=== PATIENT | female | born 1985 | race Caucasian/White ===

== ENCOUNTER 2017-06-20 02:01 | Emergency (ER) | payer SELFPAY ==
[~2017-06-20] VITALS: Ht 162.6 cm; Wt 118.9 kg
[2017-06-20] MEDS ORDERED: SODIUM CHLORIDE 0.9% 1,000ML IVBOLUS ONE (03:00)
[2017-06-20] MEDS ORDERED: SULFAMETH./TRIMETHOPRIM DS 800MG/160MG TABLET PO ONE (03:00)
[2017-06-20] MEDS ORDERED: SODIUM CHLORIDE FLUSH 10ML SYR IVF ONE (03:00)
[2017-06-20] MEDS ORDERED: CEFTRIAXONE PMX 1GM/50ML 50 ML IVPB ONE (03:00)
[2017-06-20] MEDS ORDERED: CEFTRIAXONE PMX 1GM/50ML 50 ML ONE (03:04)
[2017-06-20] MEDS ORDERED: SULFAMETH./TRIMETHOPRIM DS 800MG/160MG TABLET ONE (03:04)
[2017-06-20 03:26] LABS: BLOOD UREA NITROGEN 14 mg/dL (7-18)
[2017-06-20 04:16] VITALS: BP 122/64
== END 2017-06-20 04:32 | disposition home or self-care (01) ==
LOC: ED 03:44
DX: L03.114 Cellulitis of left upper limb (principal)
CPT/HCPCS: 36415; 80048; 82040; 85025; 87040; 96365; 99284; J0696; J7030

== ENCOUNTER 2018-09-28 18:35 | Emergency (ER) | payer SELFPAY ==
[~2018-09-28] VITALS: Ht 165.1 cm; Wt 103.0 kg
[2018-09-28 18:37] VITALS: BP 127/90
[2018-09-28] MEDS ORDERED: MAALOX/HYOSCYAMINE/LIDOCAINE 45 ML BTL PO ONE (19:00)
[2018-09-28] MEDS ORDERED: MAALOX/HYOSCYAMINE/LIDOCAINE 45 ML BTL ONE (19:12)
== END 2018-09-28 20:31 | disposition home or self-care (01) ==
LOC: ED 20:21
DX: J02.9 Acute pharyngitis, unspecified (principal); B00.2 Herpesviral gingivostomatitis and pharyngotonsillitis; F17.210 Nicotine dependence, cigarettes, uncomplicated
CPT/HCPCS: 36415; 87806; 99283; 99284; G0475

== ENCOUNTER 2019-03-06 11:24 | Inpatient (IN) | payer MEDICAID, OTHER ==
[~2019-03-06] VITALS: Ht 165.1 cm; Wt 106.8 kg
--- NOTE | 2019-03-06 11:53 | NUR ---
PT BACK TO ROOM
--- NOTE | 2019-03-06 12:00 | NUR ---
PT HERE FOR SOB AND REPORTING SHE CANNOT CATHCH HER BREATH AND UNABLE TO AMBULATE. PT ALSO REPORTS LEFT FACIAL SWELLING. PT DENIES TRUAMA. PT HAS CLEAR LUNG SOUNDS AND NO COUGH. PT ABLE TO SPEAK IN FULL SENTANCES. PT CONNECTED TO MONITORS AND CALL LIGHT IN REACH. VSS
[2019-03-06] MEDS ORDERED: SODIUM CHLORIDE FLUSH 10ML SYR IVF ONE (12:30)
--- NOTE | 2019-03-06 12:53 | NUR ---
PIV PLACED IN PT.
[2019-03-06 13:03] LABS: BASOPHILS # (AUTO) 0.03 x10^3/uL (0-0.1); BASOPHILS % (AUTO) 0 % (0-1); EOSINOPHILS # (AUTO) 0.02 x10^3/uL (0-0.4); EOSINOPHILS % (AUTO) 0 % (1-7); LYMPHOCYTES # (AUTO) 1.49 x10^3/uL (1-3.4); LYMPHOCYTES % (AUTO) 13 % (22-44); MD NO; MEAN CORPUSCULAR HEMOGLOBIN 25.9 pg (27.0-34.8); MEAN CORPUSCULAR HGB CONC 32.1 g/dL (32.4-35.8); MEAN CORPUSCULAR VOLUME 80.8 fL (80-100); MEAN PLATELET VOLUME 9.1 fL (7.4-10.4); MONOCYTES # (AUTO) 0.57 x10^3/uL (0.2-0.8); MONOCYTES % (AUTO) 5 % (2-9); NEUTROPHILS # (AUTO) 9.11 x10^3/uL (1.8-6.8); NEUTROPHILS % (AUTO) 81 % (42-75); PLATELET COUNT 335 x10^3/uL (130-400); RED BLOOD COUNT 4.43 x10^6/uL (3.82-5.3); RED CELL DISTRIBUTION WIDTH 16.9 % (9.6-15.2)
[2019-03-06 13:06] LABS: ALBUMIN 3.2 g/dL (3.4-5.0); ANION GAP 7 mmol/L (5-15); CALCIUM 8.3 mg/dL (8.5-10.1); CHLORIDE 105 mmol/L (98-107)
[2019-03-06 13:12] LABS: ALANINE AMINOTRANSFERASE 83 U/L (12-78); ALKALINE PHOSPHATASE 132 U/L (45-117); BILIRUBIN,TOTAL 0.7 mg/dL (0.2-1.0); CREATININE 0.93 mg/dL (0.55-1.02); TOTAL PROTEIN 7.4 g/dL (6.4-8.2)
[2019-03-06] MEDS ORDERED: CLINDAMYCIN PMX 600MG/50ML 50 ML IV ONE (14:00)
[2019-03-06] MEDS ORDERED: OMNIPAQUE 350 MG/ML, 75ML BOTTLE ONE ×2 (14:14→15:33)
[2019-03-06] MEDS ORDERED: CLINDAMYCIN PMX 600MG/50ML 50 ML ONE (14:30)
--- NOTE | 2019-03-06 14:38 | NUR ---
IV ABX STARTED. DOES NOT WANT CULTURES AT THIS TIME.
[2019-03-06] MEDS ORDERED: CHLORHEXIDINE 15 ML UDC MM ONE (16:00)
[2019-03-06] MEDS ORDERED: MORPHINE SULFATE 4 MG/ML, 1ML ONE (16:10)
[2019-03-06] MEDS ORDERED: ONDANSETRON 2MG/ML, 2ML ONE (16:10)
--- NOTE | 2019-03-06 16:15 | NUR ---
PT MEDICATED FOR PAIN.
[2019-03-06] MEDS ORDERED: ONDANSETRON 2MG/ML, 2ML IVPush ONE (16:30)
[2019-03-06] MEDS ORDERED: MORPHINE SULFATE 4 MG/ML, 1ML IVPush PRN (16:30)
--- NOTE | 2019-03-06 17:12 | NUR ---
REPORT CALLED TO FLORECITA JONES [phone]
[2019-03-06 17:47] VITALS: BP 130/89
[2019-03-06] MEDS: NICOTINE 7 MG/24 HR PATCH.TD24 TD SCH (18:13)
[2019-03-06] MEDS: SODIUM CHLORIDE 0.9% 1,000 ML IV SCH (18:19)
[2019-03-06] MEDS ORDERED: PROMETHAZINE 25 MG/ML, 1ML IM PRN (18:30)
[2019-03-06] MEDS ORDERED: ONDANSETRON ODT 4 MG PO PRN (18:30)
[2019-03-06] MEDS ORDERED: ONDANSETRON 2MG/ML, 2ML IVPush PRN (18:30)
[2019-03-06] MEDS ORDERED: DOCUSATE 100 MG CAPSULE PO PRN (18:30)
[2019-03-06] MEDS ORDERED: hydrALAzine 20 MG/ML, 1ML IVPush PRN (18:30)
[2019-03-06] MEDS ORDERED: BISACODYL 10 MG SUPP PR PRN (18:30)
[2019-03-06] MEDS ORDERED: ACETAMINOPHEN 325 MG TABLET PO PRN (18:30)
[2019-03-06] MEDS ORDERED: morphine SULFATE 10 MG/ML, 1ML IVPush PRN (18:30)
[2019-03-06] MEDS ORDERED: POLYETHYLENE GLYCOL 17 GM PACKET PO PRN (18:30)
[2019-03-06 18:48] LABS: HCT (SEDRATE) 35.5 % (34.6-47.8)
[2019-03-06 19:11] LABS: C-REACTIVE PROTEIN, QUANT 6.5 mg/dL (0.02-0.49); FREE T4 (FREE THYROXINE) 1.4 ng/dL (0.76-1.46); THYROID STIMULATING HORMONE 5.24 mIU/L (0.358-3.740)
[2019-03-06 19:41] VITALS: BP 123/93
[2019-03-06 19:59] LABS: HEMOGLOBIN A1C 6.2 % (4.2-6.3)
[2019-03-06] MEDS: HEPARIN 5,000 UNITS/ML, 1ML SQ SCH (20:43)
[2019-03-06] MEDS: CLINDAMYCIN PMX 600MG/50ML 50 ML IV SCH (20:43)
[2019-03-07 02:06] VITALS: BP 102/75
[2019-03-07] MEDS: HYDROcodone/APAP 5/325 TABLET PO PRN ×3 (04:15→20:36)
[2019-03-07] MEDS: HEPARIN 5,000 UNITS/ML, 1ML SQ SCH ×3 (04:15→20:36)
[2019-03-07] MEDS: SODIUM CHLORIDE 0.9% 1,000 ML IV SCH (04:15)
[2019-03-07] MEDS: CLINDAMYCIN PMX 600MG/50ML 50 ML IV SCH ×3 (04:16→21:48)
[2019-03-07 05:35] LABS: CHLORIDE 105 mmol/L (98-107)
[2019-03-07 05:40] LABS: BASOPHILS # (AUTO) 0.05 x10^3/uL (0-0.1); BASOPHILS % (AUTO) 1 % (0-1); EOSINOPHILS # (AUTO) 0.09 x10^3/uL (0-0.4); EOSINOPHILS % (AUTO) 1 % (1-7); LYMPHOCYTES # (AUTO) 3.64 x10^3/uL (1-3.4); LYMPHOCYTES % (AUTO) 41 % (22-44); MD NO; MEAN CORPUSCULAR HEMOGLOBIN 27.1 pg (27.0-34.8); MEAN CORPUSCULAR HGB CONC 33.2 g/dL (32.4-35.8); MEAN CORPUSCULAR VOLUME 81.8 fL (80-100); MEAN PLATELET VOLUME 9.4 fL (7.4-10.4); MONOCYTES # (AUTO) 0.84 x10^3/uL (0.2-0.8); MONOCYTES % (AUTO) 10 % (2-9); NEUTROPHILS % (AUTO) 48 % (42-75); PLATELET COUNT 309 x10^3/uL (130-400); RED CELL DISTRIBUTION WIDTH 17.1 % (9.6-15.2)
[2019-03-07 05:42] LABS: ALANINE AMINOTRANSFERASE 80 U/L (12-78); ALBUMIN 2.5 g/dL (3.4-5.0); ALKALINE PHOSPHATASE 120 U/L (45-117); ANION GAP 6 mmol/L (5-15); BILIRUBIN,TOTAL 0.4 mg/dL (0.2-1.0); CALCIUM 8.3 mg/dL (8.5-10.1); CHOLESTEROL, TOTAL 72 mg/dL (140-239); CREATININE 0.86 mg/dL (0.55-1.02); HDL CHOL % 25 % (28-40); HDL CHOLESTEROL (DIRECT) 18 mg/dL (40-60); LDL CHOLESTEROL,CALCULATED 35 mg/dL (54-169); LDL/HDL RATIO 1.9 (0.5-3.0); TOTAL PROTEIN 6.4 g/dL (6.4-8.2); TRIGLYCERIDES 97 mg/dL (50-200); VLDL CHOLESTEROL 19 mg/dL (0-25)
[2019-03-07 07:01] VITALS: BP 103/72
[2019-03-07] MEDS ORDERED: MAGNESIUM SULFATE PMX 2GM/50ML 50 ML IV ONE (10:00)
[2019-03-07 12:25] VITALS: BP 112/68
[2019-03-07] MEDS: NICOTINE 7 MG/24 HR PATCH.TD24 TD SCH (17:54)
[2019-03-07 19:24] VITALS: BP 106/73
[2019-03-08 02:58] VITALS: BP 136/84
[2019-03-08] MEDS: HEPARIN 5,000 UNITS/ML, 1ML SQ SCH ×3 (05:00→21:19)
[2019-03-08] MEDS: CLINDAMYCIN PMX 600MG/50ML 50 ML IV SCH ×3 (05:27→21:19)
[2019-03-08 05:34] LABS: ALANINE AMINOTRANSFERASE 110 U/L (12-78); ALBUMIN 2.5 g/dL (3.4-5.0); ALKALINE PHOSPHATASE 117 U/L (45-117); ANION GAP 6 mmol/L (5-15); BILIRUBIN,TOTAL 0.5 mg/dL (0.2-1.0); CALCIUM 8.1 mg/dL (8.5-10.1); CHLORIDE 105 mmol/L (98-107); CREATININE 0.95 mg/dL (0.55-1.02); TOTAL PROTEIN 6.6 g/dL (6.4-8.2)
[2019-03-08 09:59] VITALS: BP 113/80
[2019-03-08 14:39] VITALS: BP 128/88
[2019-03-08] MEDS: NICOTINE 7 MG/24 HR PATCH.TD24 TD SCH (18:30)
[2019-03-08 19:16] VITALS: BP 135/90
[2019-03-09 02:33] VITALS: BP 138/82
[2019-03-09] MEDS: CLINDAMYCIN PMX 600MG/50ML 50 ML IV SCH ×2 (05:13→14:30)
[2019-03-09] MEDS: HEPARIN 5,000 UNITS/ML, 1ML SQ SCH ×2 (05:13→14:30)
[2019-03-09 07:24] VITALS: BP 123/85
[2019-03-09 14:59] VITALS: BP 113/85
[2019-03-09] MEDS: HYDROcodone/APAP 5/325 TABLET PO PRN (15:29)
[2019-03-09] MEDS ORDERED: IBUP-1221 PO (17:24)
[2019-03-09] MEDS ORDERED: CLIN300C8 PO (17:24)
[2019-03-09] MEDS: NICOTINE 7 MG/24 HR PATCH.TD24 TD SCH (18:30)
[2019-03-09 20:07] VITALS: BP 114/78
== END 2019-03-09 19:30 | disposition home or self-care (01) | DRG 158 ==
LOC: ED 13:53 → EDIP 16:05 → 3NE 17:36
PROVIDERS: ADMIT Internal Medicine; ATTEND Internal Medicine
DX: K04.7 Periapical abscess without sinus (principal); A69.1 Other Vincent's infections; L03.211 Cellulitis of face; F15.90 Other stimulant use, unspecified, uncomplicated; F17.210 Nicotine dependence, cigarettes, uncomplicated; K02.9 Dental caries, unspecified; K06.8 Other specified disorders of gingiva and edentulous alveolar ridge; R74.0 Nonspecific elevation of levels of transaminase and lactic acid dehydrogenase [LDH]; K80.70 Calculus of gallbladder and bile duct without cholecystitis without obstruction; Z83.3 Family history of diabetes mellitus
CPT/HCPCS: 36415; 70487; 71260; 76700; 80053; 80061; 83036; 83735; 84439; 84443; 84702; 85025; 85651; 86140; 87040; 93005; G0378; J1644; J2405; Q9967; J3475; J7030

== ENCOUNTER 2019-10-26 07:49 | Inpatient (IN) | payer MEDICAID ==
[~2019-10-26] VITALS: Ht 165.1 cm; Wt 112.6 kg
[~2019-10-26 07:49] MED LIST: CLIN300C8 PO; IBUP-1221 PO
--- NOTE | 2019-10-26 08:42 | NUR ---
LABS/RAD ORDERED, AWAITING RESULTS. PT PLACED ON MONITOR, RESTING IN [facility]. CALL LIGHT WTIHIN REACH. NO NEEDS AT THIS TIME
[2019-10-26 09:09] LABS: ALANINE AMINOTRANSFERASE 34 U/L (12-78); ALBUMIN 3.1 g/dL (3.4-5.0); ANION GAP 6 mmol/L (5-15); CALCIUM 8.7 mg/dL (8.5-10.1); CHLORIDE 107 mmol/L (98-107); CREATININE 1.04 mg/dL (0.55-1.02)
[2019-10-26 09:13] LABS: ALKALINE PHOSPHATASE 119 U/L (45-117); BILIRUBIN,TOTAL 0.7 mg/dL (0.2-1.0); TOTAL PROTEIN 7.6 g/dL (6.4-8.2)
[2019-10-26 09:17] LABS: TROPONIN I 0.274 ng/mL (0.000-0.045)
[2019-10-26] MEDS ORDERED: ASPIRIN 81 MG TABLET CHEW PO ONE (09:30)
--- NOTE | 2019-10-26 09:42 | NUR ---
UNABLE TO OBTAIN IV ACCESS AFTER MULTIPLE ATTEMPTS. SNEHA RN AT BEDSIDE FOR US IV
[2019-10-26 09:47] LABS: BASOPHILS # (AUTO) 0.04 x10^3/uL (0-0.1); BASOPHILS % (AUTO) 1 % (0-1); EOSINOPHILS # (AUTO) 0.02 x10^3/uL (0-0.4); EOSINOPHILS % (AUTO) 0 % (1-7); LYMPHOCYTES # (AUTO) 2.13 x10^3/uL (1-3.4); LYMPHOCYTES % (AUTO) 28 % (22-44); MD SCAN; MEAN CORPUSCULAR HEMOGLOBIN 24.9 pg (27.0-34.8); MEAN CORPUSCULAR HGB CONC 30.9 g/dL (32.4-35.8); MEAN CORPUSCULAR VOLUME 80.5 fL (80-100); MEAN PLATELET VOLUME 9.6 fL (7.4-10.4); MONOCYTES # (AUTO) 0.61 x10^3/uL (0.2-0.8); MONOCYTES % (AUTO) 8 % (2-9); NEUTROPHILS # (AUTO) 4.82 x10^3/uL (1.8-6.8); NEUTROPHILS % (AUTO) 63 % (42-75); PLATELET COUNT 228 x10^3/uL (130-400); RED BLOOD COUNT 5.82 x10^6/uL (3.82-5.3); RED CELL DISTRIBUTION WIDTH 18.8 % (9.6-15.2)
[2019-10-26] MEDS ORDERED: ENOXAPARIN 120MG/0.8ML SQ ONE ×2 (10:00→10:30)
--- NOTE | 2019-10-26 10:08 | NUR ---
SPOKE W/PHARMACY REGARDING LOVENOX DOSE 1MG, THEY WILL CORRECT AND SEND DOSE OF LOVENOX 120MG
[2019-10-26] MEDS ORDERED: ASPIRIN 81 MG TABLET CHEW ONE (10:17)
[2019-10-26 10:24] LABS: INTERNATIONAL NORMALIZED RATIO 1.13 (0.93-1.1); PROTHROMBIN TIME 11.8 Seconds (9.6-11.5)
--- NOTE | 2019-10-26 11:08 | NUR ---
PT MEDICATED PER MAR, PT AMBULATED TO BATHROOM WITH STEADY GAIT. NO NEEDS AT THIS TIME, CALL LIGHT WITHIN REACH. AWAITING CTA RESULTS.
[2019-10-26] MEDS ORDERED: morphine SULFATE 10 MG/ML, 1ML IVPush PRN (11:30)
[2019-10-26] MEDS ORDERED: NITROGLYCERIN 0.4 MG/SPRAY SL PRN (11:30)
[2019-10-26] MEDS ORDERED: ACETAMINOPHEN 325 MG TABLET PO PRN (11:30)
[2019-10-26] MEDS ORDERED: hydrALAzine 20 MG/ML, 1ML IVPush PRN (11:30)
[2019-10-26] MEDS ORDERED: OMNIPAQUE 350 MG/ML, 150 ML BOTTLE ONE (11:50)
[2019-10-26] MEDS ORDERED: FUROSEMIDE 40 MG/4 ML IV ONE (12:00)
--- NOTE | 2019-10-26 12:04 | NUR ---
report to ronn dorado
--- NOTE | 2019-10-26 12:05 | NUR ---
REPORT TO LILIAM JONES
[2019-10-26 12:37] VITALS: BP 155/115
[2019-10-26 14:48] LABS: AMPHETAMINE SCREEN, URINE Positive (Negative); BARBITURATE SCREEN, URINE Negative (Negative); BENZODIAZEPINE SCREEN, URINE Negative (Negative); CANNABINOID SCREEN, URINE Negative (Negative); COCAINE SCREEN, URINE Negative (Negative); METHADONE SCREEN, URINE Negative (Negative); OPIATE SCREEN, URINE Negative (Negative)
[2019-10-26 15:07] VITALS: BP 134/96
[2019-10-26] MEDS ORDERED: FLU VACC QS2019-20 36MOS UP/PF 0.5 ML IM-VACC ONE (16:00)
[2019-10-26 16:21] LABS: TROPONIN I 0.275 ng/mL (0.000-0.045)
[2019-10-26] MEDS: METOPROLOL TARTRATE 25 MG TABLET PO SCH (17:21)
[2019-10-26 19:29] VITALS: BP 126/90
[2019-10-26 20:38] LABS: TROPONIN I 0.288 ng/mL (0.000-0.045)
[2019-10-26] MEDS ORDERED: ATORVASTATIN 80 MG TABLET PO SCH (21:00)
[2019-10-27 01:46] VITALS: BP_SYST 135; BP_SYST 136; BP_DIAS 101
[2019-10-27 05:57] LABS: ANION GAP 5 mmol/L (5-15); CALCIUM 8.9 mg/dL (8.5-10.1); CHLORIDE 103 mmol/L (98-107); CHOLESTEROL, TOTAL 120 mg/dL (140-239); CREATININE 1.07 mg/dL (0.55-1.02); TRIGLYCERIDES 103 mg/dL (50-200); VLDL CHOLESTEROL 21 mg/dL (0-25)
[2019-10-27 05:59] LABS: CHOL/HDL RATIO 3.2; HDL CHOL % 31 % (28-40); HDL CHOLESTEROL (DIRECT) 37 mg/dL (40-60); LDL CHOLESTEROL,CALCULATED 62 mg/dL (54-169); LDL/HDL RATIO 1.7 (0.5-3.0)
[2019-10-27] MEDS: METOPROLOL TARTRATE 25 MG TABLET PO SCH ×2 (06:11→17:13)
[2019-10-27] MEDS: ASPIRIN 81 MG TABLET EC PO SCH (06:11)
[2019-10-27 07:05] VITALS: BP 123/89
[2019-10-27] MEDS ORDERED: FUROSEMIDE 40 MG TABLET ONE (08:20)
[2019-10-27] MEDS: SILDENAFIL 20 MG TABLET PO SCH ×2 (08:30→17:14)
[2019-10-27] MEDS ORDERED: FUROSEMIDE 40 MG/4 ML IV SCH (09:00)
[2019-10-27] MEDS ORDERED: ENOXAPARIN 40 MG/0.4 ML SQ SCH (11:30)
[2019-10-27 13:14] VITALS: BP 131/90
[2019-10-27 17:13] VITALS: BP 138/100
[2019-10-27 19:42] VITALS: BP 126/83
[2019-10-27] MEDS ORDERED: ATORVASTATIN 10 MG TABLET PO SCH (21:00)
[2019-10-28 00:26] VITALS: BP 124/84
[2019-10-28] MEDS: SILDENAFIL 20 MG TABLET PO SCH ×2 (00:31→09:08)
[2019-10-28 05:26] VITALS: BP 134/95
[2019-10-28] MEDS: METOPROLOL TARTRATE 25 MG TABLET PO SCH (05:29)
[2019-10-28] MEDS: ASPIRIN 81 MG TABLET EC PO SCH (05:29)
[2019-10-28] MEDS ORDERED: FURO-93 PO (08:55)
[2019-10-28] MEDS ORDERED: ATOR10TA9 PO (08:55)
[2019-10-28] MEDS ORDERED: ASPI81TA45 PO (08:55)
[2019-10-28] MEDS ORDERED: METO25TA35 PO (08:55)
[2019-10-28] MEDS ORDERED: SILD20TA PO (08:55)
[2019-10-28] MEDS ORDERED: FUROSEMIDE 20 MG TABLET PO SCH (09:00)
[2019-10-28 09:04] VITALS: BP 114/80
[2019-10-28 09:22] LABS: BASOPHILS # (AUTO) 0.07 x10^3/uL (0-0.1); BASOPHILS % (AUTO) 1 % (0-1); EOSINOPHILS # (AUTO) 0.07 x10^3/uL (0-0.4); EOSINOPHILS % (AUTO) 1 % (1-7); LYMPHOCYTES # (AUTO) 1.94 x10^3/uL (1-3.4); LYMPHOCYTES % (AUTO) 25 % (22-44); MD NO; MEAN CORPUSCULAR HGB CONC 31.4 g/dL (32.4-35.8); MEAN CORPUSCULAR VOLUME 79.6 fL (80-100); MEAN PLATELET VOLUME 9.7 fL (7.4-10.4); MONOCYTES # (AUTO) 0.55 x10^3/uL (0.2-0.8); MONOCYTES % (AUTO) 7 % (2-9); NEUTROPHILS # (AUTO) 5.24 x10^3/uL (1.8-6.8); NEUTROPHILS % (AUTO) 67 % (42-75); PLATELET COUNT 225 x10^3/uL (130-400); RED CELL DISTRIBUTION WIDTH 19.1 % (9.6-15.2)
[2019-10-28 09:33] LABS: ANION GAP 7 mmol/L (5-15); CALCIUM 8.9 mg/dL (8.5-10.1); CHLORIDE 100 mmol/L (98-107)
[2019-10-28 09:35] LABS: CREATININE 1.12 mg/dL (0.55-1.02)
== END 2019-10-28 12:21 | disposition home or self-care (01) | DRG 291 ==
LOC: ED 08:42 → EDIP 11:30 → 5SO 12:39
PROVIDERS: ADMIT Internal Medicine Infectious Disease; ATTEND Internal Medicine
DX: I11.0 Hypertensive heart disease with heart failure (principal); J96.90 Respiratory failure, unspecified, unspecified whether with hypoxia or hypercapnia; Z68.41 Body mass index [BMI] 40.0-44.9, adult; I50.9 Heart failure, unspecified; N63.10 Unspecified lump in the right breast, unspecified quadrant; F17.210 Nicotine dependence, cigarettes, uncomplicated; E66.9 Obesity, unspecified; I27.21 Secondary pulmonary arterial hypertension; I37.1 Nonrheumatic pulmonary valve insufficiency; F15.10 Other stimulant abuse, uncomplicated; Z90.49 Acquired absence of other specified parts of digestive tract; Z98.51 Tubal ligation status; Z82.49 Family history of ischemic heart disease and other diseases of the circulatory system; Z59.0 Homelessness; Z23 Encounter for immunization; Z79.899 Other long term (current) drug therapy
CPT/HCPCS: 36415; 71045; 71275; 80048; 80053; 80061; 80307; 83735; 83880; 84100; 84484; 85025; 85379; 85610; 85730; 90686; 93005; 93306; G0378; J1650; J1940; Q9967

== ENCOUNTER 2020-02-12 21:10 | Inpatient (IN) | payer MEDICAID ==
[~2020-02-12] VITALS: Ht 165.1 cm; Wt 134.3 kg
[~2020-02-12 21:10] MED LIST changes: +ASPI81TA45 PO; +ATOR10TA9 PO; +FURO-93 PO; +METO25TA35 PO; +SILD20TA PO
--- NOTE | 2020-02-12 21:26 | NUR ---
EKG DONE IN TRIAGE
[2020-02-12] MEDS ORDERED: SODIUM CHLORIDE FLUSH 10ML SYR IVF ONE (21:30)
[2020-02-12 22:00] LABS: BASOPHILS # (AUTO) 0.01 x10^3/uL (0-0.1); BASOPHILS % (AUTO) 0 % (0-1); EOSINOPHILS # (AUTO) 0.05 x10^3/uL (0-0.4); EOSINOPHILS % (AUTO) 1 % (1-7); LYMPHOCYTES # (AUTO) 1.86 x10^3/uL (1-3.4); LYMPHOCYTES % (AUTO) 29 % (22-44); MD NO; MEAN CORPUSCULAR HEMOGLOBIN 24.7 pg (27.0-34.8); MEAN CORPUSCULAR HGB CONC 31.6 g/dL (32.4-35.8); MEAN CORPUSCULAR VOLUME 78.2 fL (80-100); MEAN PLATELET VOLUME 9.7 fL (7.4-10.4); MONOCYTES # (AUTO) 0.31 x10^3/uL (0.2-0.8); MONOCYTES % (AUTO) 5 % (2-9); NEUTROPHILS # (AUTO) 4.23 x10^3/uL (1.8-6.8); NEUTROPHILS % (AUTO) 66 % (42-75); PLATELET COUNT 275 x10^3/uL (130-400); RED BLOOD COUNT 6.35 x10^6/uL (3.82-5.3); RED CELL DISTRIBUTION WIDTH 18.9 % (9.6-15.2)
[2020-02-12 22:26] LABS: ALANINE AMINOTRANSFERASE 42 U/L (12-78); ALBUMIN 3.2 g/dL (3.4-5.0); ANION GAP 10 mmol/L (5-15); CHLORIDE 106 mmol/L (98-107)
[2020-02-12 22:29] LABS: ALKALINE PHOSPHATASE 201 U/L (45-117); BILIRUBIN,TOTAL 1.5 mg/dL (0.2-1.0); CREATININE 1.08 mg/dL (0.55-1.02); TOTAL PROTEIN 8.9 g/dL (6.4-8.2)
[2020-02-12] MEDS ORDERED: FUROSEMIDE 40 MG/4 ML IV ONE (22:30)
[2020-02-12] MEDS ORDERED: ONDANSETRON 2MG/ML, 2ML IVPush PRN (23:00)
[2020-02-12] MEDS: NICOTINE 21 MG/24 HR PATCH.TD24 TD SCH (23:00)
[2020-02-12] MEDS ORDERED: POLYETHYLENE GLYCOL 17 GM PACKET PO PRN (23:00)
[2020-02-12] MEDS ORDERED: ACETAMINOPHEN 325 MG TABLET PO PRN (23:00)
[2020-02-12] MEDS ORDERED: hydrALAzine 20 MG/ML, 1ML IVPush PRN (23:00)
[2020-02-12] MEDS ORDERED: ZOLPIDEM 5MG TABLET PO PRN (23:00)
[2020-02-12] MEDS ORDERED: BISACODYL 10 MG SUPP PR PRN (23:00)
[2020-02-12] MEDS ORDERED: LIDODERM 5% PATCH TD PRN (23:00)
[2020-02-12] MEDS ORDERED: FUROSEMIDE 40 MG/4 ML ONE (23:04)
[2020-02-12] MEDS ORDERED: MAGNESIUM SULFATE PMX 2GM/50ML 50 ML IV ONE (23:30)
[2020-02-13 00:06] VITALS: BP 141/100
[2020-02-13 00:08] LABS: HCT (SEDRATE) 49.6 % (34.6-47.8)
[2020-02-13 00:26] LABS: TROPONIN I 0.236 ng/mL (0.000-0.045)
[2020-02-13 03:06] VITALS: BP 137/103
[2020-02-13 05:06] LABS: BASOPHILS # (AUTO) 0.04 x10^3/uL (0-0.1); BASOPHILS % (AUTO) 1 % (0-1); EOSINOPHILS # (AUTO) 0.05 x10^3/uL (0-0.4); EOSINOPHILS % (AUTO) 1 % (1-7); LYMPHOCYTES # (AUTO) 2.26 x10^3/uL (1-3.4); LYMPHOCYTES % (AUTO) 30 % (22-44); MD NO; MEAN CORPUSCULAR HEMOGLOBIN 25.1 pg (27.0-34.8); MEAN CORPUSCULAR HGB CONC 31.8 g/dL (32.4-35.8); MEAN CORPUSCULAR VOLUME 78.7 fL (80-100); MEAN PLATELET VOLUME 9.6 fL (7.4-10.4); MONOCYTES # (AUTO) 0.68 x10^3/uL (0.2-0.8); MONOCYTES % (AUTO) 9 % (2-9); NEUTROPHILS # (AUTO) 4.46 x10^3/uL (1.8-6.8); NEUTROPHILS % (AUTO) 60 % (42-75); PLATELET COUNT 268 x10^3/uL (130-400); RED BLOOD COUNT 6.18 x10^6/uL (3.82-5.3); RED CELL DISTRIBUTION WIDTH 18.8 % (9.6-15.2)
[2020-02-13 05:20] LABS: ALBUMIN 3.3 g/dL (3.4-5.0); ANION GAP 10 mmol/L (5-15); CALCIUM 9.3 mg/dL (8.5-10.1); CHLORIDE 100 mmol/L (98-107)
[2020-02-13 05:25] LABS: CREATININE 1.08 mg/dL (0.55-1.02)
[2020-02-13 05:26] LABS: ALANINE AMINOTRANSFERASE 40 U/L (12-78); ALKALINE PHOSPHATASE 195 U/L (45-117); BILIRUBIN,TOTAL 1.8 mg/dL (0.2-1.0); CHOLESTEROL, TOTAL 99 mg/dL (140-239); HDL CHOL % 33 % (28-40); HDL CHOLESTEROL (DIRECT) 33 mg/dL (40-60); LDL CHOLESTEROL,CALCULATED 46 mg/dL (54-169); LDL/HDL RATIO 1.4 (0.5-3.0); TOTAL PROTEIN 8.8 g/dL (6.4-8.2); TRIGLYCERIDES 101 mg/dL (50-200); TROPONIN I 0.251 ng/mL (0.000-0.045); VLDL CHOLESTEROL 20 mg/dL (0-25)
[2020-02-13 05:42] VITALS: BP 120/84
[2020-02-13] MEDS: METOPROLOL TARTRATE 25 MG TAB PO SCH ×2 (05:43→17:48)
[2020-02-13] MEDS: ASPIRIN 81 MG TABLET EC PO SCH (05:43)
[2020-02-13] MEDS ORDERED: MAGNESIUM SULFATE PMX 2GM/50ML 50 ML IV ONE (06:30)
[2020-02-13 07:45] VITALS: BP 111/80
[2020-02-13] MEDS: SILDENAFIL 20 MG TABLET PO SCH ×3 (08:29→21:07)
[2020-02-13] MEDS: PANTOPRAZOLE 40MG TABLET PO SCH (08:29)
[2020-02-13] MEDS: FUROSEMIDE 40 MG/4 ML IV SCH ×2 (08:29→17:48)
[2020-02-13 14:21] VITALS: BP 113/83
[2020-02-13 19:57] VITALS: BP 100/68
[2020-02-13] MEDS ORDERED: ATORVASTATIN 10 MG TABLET PO SCH (21:00)
[2020-02-13] MEDS: NICOTINE 21 MG/24 HR PATCH.TD24 TD SCH (21:06)
[2020-02-14 00:28] VITALS: BP 103/66
[2020-02-14] MEDS: ASPIRIN 81 MG TABLET EC PO SCH (06:16)
[2020-02-14] MEDS: METOPROLOL TARTRATE 25 MG TAB PO SCH (06:16)
[2020-02-14 07:05] VITALS: BP 93/68
[2020-02-14 07:12] LABS: ALBUMIN 2.6 g/dL (3.4-5.0); ANION GAP 10 mmol/L (5-15); CALCIUM 8.9 mg/dL (8.5-10.1); CHLORIDE 102 mmol/L (98-107)
[2020-02-14 07:13] LABS: BASOPHILS # (AUTO) 0.07 x10^3/uL (0-0.1); BASOPHILS % (AUTO) 1 % (0-1); EOSINOPHILS # (AUTO) 0.05 x10^3/uL (0-0.4); EOSINOPHILS % (AUTO) 1 % (1-7); LYMPHOCYTES # (AUTO) 2.56 x10^3/uL (1-3.4); LYMPHOCYTES % (AUTO) 37 % (22-44); MD NO; MEAN CORPUSCULAR HEMOGLOBIN 24.8 pg (27.0-34.8); MEAN CORPUSCULAR HGB CONC 31.3 g/dL (32.4-35.8); MEAN CORPUSCULAR VOLUME 79.3 fL (80-100); MEAN PLATELET VOLUME 9.6 fL (7.4-10.4); MONOCYTES # (AUTO) 0.78 x10^3/uL (0.2-0.8); MONOCYTES % (AUTO) 11 % (2-9); NEUTROPHILS # (AUTO) 3.44 x10^3/uL (1.8-6.8); NEUTROPHILS % (AUTO) 50 % (42-75); PLATELET COUNT 278 x10^3/uL (130-400); RED BLOOD COUNT 5.89 x10^6/uL (3.82-5.3); RED CELL DISTRIBUTION WIDTH 18.9 % (9.6-15.2)
[2020-02-14] MEDS ORDERED: MAGNESIUM SULFATE PMX 2GM/50ML 50 ML IV ONE (08:00)
[2020-02-14] MEDS: PANTOPRAZOLE 40MG TABLET PO SCH (08:16)
[2020-02-14] MEDS: SILDENAFIL 20 MG TABLET PO SCH (08:16)
[2020-02-14] MEDS: FUROSEMIDE 40 MG/4 ML IV SCH (08:16)
== END 2020-02-14 11:03 | disposition home or self-care (01) | DRG 293 ==
LOC: ED 22:32 → SUATTDRO 22:52 → EDIP 22:55 → 4EST 02-13 00:04
PROVIDERS: ADMIT Hospitalist; ATTEND Family Medicine
DX: I11.0 Hypertensive heart disease with heart failure (principal); F15.10 Other stimulant abuse, uncomplicated; I50.33 Acute on chronic diastolic (congestive) heart failure; F17.200 Nicotine dependence, unspecified, uncomplicated; H54.62 Unqualified visual loss, left eye, normal vision right eye; I27.20 Pulmonary hypertension, unspecified; I34.0 Nonrheumatic mitral (valve) insufficiency; Z82.49 Family history of ischemic heart disease and other diseases of the circulatory system; Z91.14 Patient's other noncompliance with medication regimen; Z98.51 Tubal ligation status; Z79.899 Other long term (current) drug therapy; Z71.51 Drug abuse counseling and surveillance of drug abuser
CPT/HCPCS: 36415; 71045; 80053; 80061; 80069; 83735; 83880; 84100; 84439; 84443; 84484; 85025; 85651; 93005; G0378; J1940; J0360; J3475

== ENCOUNTER 2020-04-11 15:52 | Inpatient (IN) | payer MEDICAID ==
[~2020-04-11] VITALS: Ht 165.1 cm; Wt 168.8 kg
--- NOTE | 2020-04-11 16:07 | NUR ---
PT TO ED FOR SOB X1 WEEK AFTER RUNNING OUT OF LASIX. HX METH USE. PER EMS, PT WAS LOW 80S% ON RA AND PLACED ON 15L NRB. PT PRESENTS TACHYCARDIC 120S-140S, TACHYPNEIC 20S-40S ON 15L NRB WITH O2 SAT 88%. PT SITTING UPRIGHT, VERY WINDED WITH NO EXERTION, SPEAKING IN 1-2 WORD PHRASES. PT HAS GENERALIZED EDEMA 3-4+ WITH FACIAL EDEMA WORST AROUND EYES. SKIN IS COOL, CYANOTIC AROUND MOUTH, GENERALIZED MOTTLING. 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 TASK RN TO BS TO PLACE US IV. JACKSON EDPA AND ALEKSANDR SCOTT TO BS FOR ASSESSMENT. AWAITING ORDERS.
[2020-04-11] MEDS ORDERED: SODIUM CHLORIDE FLUSH 10ML SYR IVF ONE (16:30)
[2020-04-11] MEDS ORDERED: VECURONIUM 10 MG ONE (16:45)
[2020-04-11] MEDS ORDERED: ETOMIDATE 20 MG/10 ML ONE ×2 (16:45→18:16)
[2020-04-11 16:46] LABS: INTERNATIONAL NORMALIZED RATIO 1.52 (0.93-1.1); PROTHROMBIN TIME 16.2 Seconds (9.6-11.5)
[2020-04-11 16:48] LABS: ALANINE AMINOTRANSFERASE 60 U/L (12-78); ALBUMIN 2.4 g/dL (3.4-5.0); ANION GAP 8 mmol/L (5-15); CALCIUM 8.3 mg/dL (8.5-10.1); CHLORIDE 102 mmol/L (98-107); CREATININE 1.13 mg/dL (0.55-1.02)
[2020-04-11 16:50] LABS: ALKALINE PHOSPHATASE 209 U/L (45-117); BILIRUBIN,TOTAL 2.2 mg/dL (0.2-1.0); TOTAL PROTEIN 7.6 g/dL (6.4-8.2)
[2020-04-11 16:58] LABS: TROPONIN I 0.242 ng/mL (0.000-0.045)
[2020-04-11 17:01] LABS: BASOPHILS # (AUTO) 0.05 x10^3/uL (0-0.1); BASOPHILS % (AUTO) 1 % (0-1); EOSINOPHILS # (AUTO) 0.04 x10^3/uL (0-0.4); EOSINOPHILS % (AUTO) 1 % (1-7); LYMPHOCYTES # (AUTO) 2.48 x10^3/uL (1-3.4); LYMPHOCYTES % (AUTO) 28 % (22-44); MD NO; MEAN CORPUSCULAR HEMOGLOBIN 24.4 pg (27.0-34.8); MEAN CORPUSCULAR HGB CONC 30.9 g/dL (32.4-35.8); MEAN CORPUSCULAR VOLUME 78.9 fL (80-100); MONOCYTES # (AUTO) 0.75 x10^3/uL (0.2-0.8); MONOCYTES % (AUTO) 8 % (2-9); NEUTROPHILS # (AUTO) 5.51 x10^3/uL (1.8-6.8); NEUTROPHILS % (AUTO) 62 % (42-75); PLATELET COUNT 320 x10^3/uL (130-400); RED CELL DISTRIBUTION WIDTH 23.3 % (9.6-15.2)
[2020-04-11] MEDS ORDERED: CEFTRIAXONE PMX 1GM/50ML 50 ML IVPB ONE (17:30)
[2020-04-11] MEDS ORDERED: PROPOFOL 10 MG/ML, 100ML IV ONE (18:16)
[2020-04-11] MEDS ORDERED: PROPOFOL 100 ML IV PRN (18:30)
[2020-04-11] MEDS ORDERED: VECURONIUM 10 MG IVPush ONE (18:30)
[2020-04-11] MEDS ORDERED: SODIUM CHLORIDE FLUSH 10ML SYR IVF PRN (18:30)
[2020-04-11 18:32] LABS: MICROSCOPIC AUTO
[2020-04-11] MEDS ORDERED: CEFTRIAXONE PMX 1GM/50ML 50 ML ONE (18:59)
[2020-04-11] MEDS ORDERED: LACTULOSE 20 GM/30 ML UDC NG PRN (19:00)
[2020-04-11] MEDS ORDERED: ENOXAPARIN 40 MG/0.4 ML SQ SCH ×2 (19:00)
[2020-04-11] MEDS ORDERED: ETOMIDATE 20 MG/10 ML IVPush ONE (19:00)
[2020-04-11] MEDS ORDERED: FENTANYL PF 100 MCG/2ML IVPush PRN (19:00)
[2020-04-11] MEDS ORDERED: SENNA/DOCUSATE TABLET NG PRN (19:00)
[2020-04-11] MEDS ORDERED: BISACODYL 10 MG SUPP PR PRN (19:00)
[2020-04-11] MEDS ORDERED: ACETAMINOPHEN 650 MG/20.3 ML UDC PO/NG PRN (19:00)
[2020-04-11] MEDS ORDERED: ONDANSETRON 2MG/ML, 2ML IVPush PRN (19:00)
[2020-04-11] MEDS ORDERED: LIDOCAINE-MPF 1%, 2ML ENDO PRN (19:00)
[2020-04-11] MEDS ORDERED: PHARMACY MAY ADJ FOR RENAL FX MC SCH (19:00)
[2020-04-11] MEDS ORDERED: hydrALAzine 20 MG/ML, 1ML IVPush PRN (19:00)
[2020-04-11] MEDS ORDERED: SENNA 176 MG/5 ML ORAL SOL NG PRN (19:00)
[2020-04-11] MEDS ORDERED: ACETAMINOPHEN 325 MG TABLET PO PRN (19:00)
[2020-04-11] MEDS ORDERED: CEFTRIAXONE PMX 1GM/50ML 50 ML IV SCH (19:30)
[2020-04-11 19:36] LABS: TRIGLYCERIDES 193 mg/dL (50-200)
[2020-04-11 19:43] LABS: TROPONIN I 0.287 ng/mL (0.000-0.045)
[2020-04-11] MEDS ORDERED: PROPOFOL 100 ML IV ONE (20:04)
[2020-04-11] MEDS: FUROSEMIDE 40 MG/4 ML IV SCH (20:30)
[2020-04-11] MEDS: DOXYCYCLINE 100 MG in DEXTROSE 5% 250 ML IV SCH (21:00)
[2020-04-11] MEDS: POTASSIUM ACETATE 20 MEQ in SODIUM CHLORIDE 0.9% 1,000 ML IV SCH (21:00)
[2020-04-11] MEDS ORDERED: FUROSEMIDE 20 MG/2 ML ONE (21:10)
[2020-04-11] MEDS: FAMOTIDINE 20 MG/2 ML IV SCH (21:11)
[2020-04-11] MEDS: ATORVASTATIN 10 MG TABLET PO SCH ×2 (21:12→21:15)
[2020-04-11] MEDS: SILDENAFIL 20 MG TABLET PO SCH (21:15)
[2020-04-11] MEDS: ENOXAPARIN 40 MG/0.4 ML SQ SCH (21:17)
[2020-04-11] MEDS ORDERED: SODIUM BICARB 8.4%, 50ML SYRINGE ONE ×2 (22:04→22:07)
[2020-04-11] MEDS ORDERED: NOREPINEPHRINE 1 MG/ML, 4ML ONE (22:05)
[2020-04-11] MEDS ORDERED: SODIUM BICARBONATE 1 MEQ/ML, 50ML VIAL ONE ×2 (22:06→22:15)
[2020-04-11] MEDS: NOREPINEPHRINE 8 MG in SODIUM CHLORIDE 0.9% 242 ML IV PRN (22:24)
[2020-04-11] MEDS ORDERED: SODIUM BICARB 8.4%, 50ML SYRINGE IVPush STA (22:25)
[2020-04-11] MEDS: PROPOFOL 100 ML IV PRN (23:30)
[2020-04-11 23:49] LABS: AMPHETAMINE SCREEN, URINE Positive (Negative); BARBITURATE SCREEN, URINE Negative (Negative); BENZODIAZEPINE SCREEN, URINE Negative (Negative); CANNABINOID SCREEN, URINE Negative (Negative); COCAINE SCREEN, URINE Negative (Negative); METHADONE SCREEN, URINE Negative (Negative); OPIATE SCREEN, URINE Negative (Negative)
[2020-04-12 01:30] VITALS: BP 113/49
[2020-04-12 01:50] LABS: TROPONIN I 0.874 ng/mL (0.000-0.045)
[2020-04-12] MEDS: PROPOFOL 100 ML IV PRN ×5 (03:24→22:26)
[2020-04-12 04:00] VITALS: BP 104/36
[2020-04-12 05:15] LABS: ALANINE AMINOTRANSFERASE 62 U/L (12-78); ALBUMIN 2.4 g/dL (3.4-5.0); ANION GAP 16 mmol/L (5-15); CALCIUM 8.2 mg/dL (8.5-10.1); CHLORIDE 100 mmol/L (98-107); CREATININE 1.68 mg/dL (0.55-1.02)
[2020-04-12 05:17] LABS: MEAN CORPUSCULAR HEMOGLOBIN 24.7 pg (27.0-34.8); MEAN CORPUSCULAR HGB CONC 31.1 g/dL (32.4-35.8); MEAN CORPUSCULAR VOLUME 79.6 fL (80-100); MEAN PLATELET VOLUME 9.3 fL (7.4-10.4); PLATELET COUNT 264 x10^3/uL (130-400); RED BLOOD COUNT 6.02 x10^6/uL (3.82-5.3); RED CELL DISTRIBUTION WIDTH 23.1 % (9.6-15.2)
[2020-04-12 05:25] LABS: ALKALINE PHOSPHATASE 210 U/L (45-117); BILIRUBIN,TOTAL 2.4 mg/dL (0.2-1.0); TOTAL PROTEIN 7.6 g/dL (6.4-8.2)
[2020-04-12] MEDS ORDERED: DEXTROSE 50%, 50ML SYRINGE ONE ×2 (05:57→19:41)
[2020-04-12] MEDS ORDERED: DEXTROSE 50%, 50ML SYRINGE IVPush ONE ×6 (06:00→22:00)
[2020-04-12 06:01] LABS: BASOPHILS # (AUTO) 0.03 x10^3/uL (0-0.1); BASOPHILS % (AUTO) 0 % (0-1); EOSINOPHILS % (AUTO) 0 % (1-7); LYMPHOCYTES # (AUTO) 3.12 x10^3/uL (1-3.4); LYMPHOCYTES % (AUTO) 24 % (22-44); MD SCAN; MONOCYTES # (AUTO) 0.84 x10^3/uL (0.2-0.8); MONOCYTES % (AUTO) 6 % (2-9); NEUTROPHILS % (AUTO) 70 % (42-75)
[2020-04-12] MEDS: POTASSIUM ACETATE 20 MEQ in SODIUM CHLORIDE 0.9% 1,000 ML IV SCH (06:03)
[2020-04-12] MEDS: NOREPINEPHRINE 8 MG in SODIUM CHLORIDE 0.9% 242 ML IV PRN ×2 (06:04→08:05)
[2020-04-12] MEDS: METOPROLOL TARTRATE 25 MG TAB PO SCH ×2 (06:10→18:00)
[2020-04-12] MEDS: ASPIRIN 81 MG TABLET EC PO SCH (06:10)
[2020-04-12] MEDS ORDERED: MAGNESIUM SULFATE PMX 4GM/100M 100 ML IV ONE (07:30)
[2020-04-12] MEDS ORDERED: D5%-0.9% NACL 1,000 ML IV SCH (08:00)
[2020-04-12] MEDS: FAMOTIDINE 20 MG/2 ML IV SCH (08:30)
[2020-04-12] MEDS: VASOPRESSIN 20 UNIT in SODIUM CHLORIDE 0.9% 99 ML IV PRN ×2 (08:31→14:54)
[2020-04-12] MEDS ORDERED: SODIUM BICARBONATE 1 MEQ/ML, 50ML VIAL ONE (08:47)
[2020-04-12] MEDS: DOXYCYCLINE 100 MG in DEXTROSE 5% 250 ML IV SCH ×2 (08:55→21:06)
[2020-04-12] MEDS: SILDENAFIL 20 MG TABLET PO SCH ×3 (09:00→21:00)
[2020-04-12] MEDS ORDERED: SODIUM BICARBONATE 1 MEQ/ML, 50ML VIAL IVPush ONE (09:00)
[2020-04-12] MEDS ORDERED: ALBUMIN HUMAN 25% 100 ML IV ONE ×2 (09:00)
[2020-04-12] MEDS: FUROSEMIDE 40 MG/4 ML IV SCH ×2 (09:07→17:00)
[2020-04-12] MEDS: PANTOPRAZOLE 40 MG IV IVPush SCH (09:07)
[2020-04-12] MEDS: NOREPINEPHRINE 32 MG in SODIUM CHLORIDE 0.9% 218 ML IV PRN ×3 (09:27→20:32)
--- NOTE | 2020-04-12 11:06 | NUR ---
TF Goal recs: Vital HP @ 65 ml/hour on propofol and 70 ml/hour off propofol
[2020-04-12] MEDS ORDERED: SODIUM BICARBONATE 1 MEQ/ML, 50ML VIAL IVPush STA ×2 (11:43)
[2020-04-12] MEDS ORDERED: SODIUM BICARBONATE 8.4% 150 MEQ in DEXTROSE 5% 1,000 ML IV SCH (12:00)
[2020-04-12] MEDS: SODIUM BICARBONATE 8.4% 150 MEQ in DEXTROSE 5% 1,000 ML IV SCH ×2 (13:17→23:40)
[2020-04-12] MEDS ORDERED: VANCOMYCIN PER PHARMACY MC PRN (15:00)
[2020-04-12] MEDS: CEFTRIAXONE PMX 2GM/50ML 50 ML IV SCH ×2 (15:00→16:40)
[2020-04-12] MEDS ORDERED: VANCOMYCIN 2,500 MG in SODIUM CHLORIDE 0.9% 500 ML IV ONE (16:00)
[2020-04-12] MEDS ORDERED: PHARMACOKINETIC MONITORING MC PRN (16:00)
[2020-04-12] MEDS ORDERED: PHARMACOKINETIC CONSULTATION MC ONE (16:00)
[2020-04-12] MEDS ORDERED: FAMOTIDINE 20 MG/2 ML IV SCH (16:30)
[2020-04-12] MEDS ORDERED: SODIUM BICARB 8.4%, 50ML SYRINGE IVPush STA (17:44)
[2020-04-12] MEDS ORDERED: SODIUM BICARB 8.4%, 50ML SYRINGE ONE ×2 (17:47→22:05)
[2020-04-12] MEDS ORDERED: DEXTROSE 50%, 50ML VIAL IVPush ONE (18:00)
[2020-04-12] MEDS: ATORVASTATIN 10 MG TABLET PO SCH (21:00)
[2020-04-12] MEDS: ENOXAPARIN 40 MG/0.4 ML SQ SCH (21:13)
[2020-04-12] MEDS ORDERED: SODIUM BICARB 8.4%, 50ML SYRINGE IVPush ONE (22:00)
[2020-04-13] MEDS: VASOPRESSIN 20 UNIT in SODIUM CHLORIDE 0.9% 99 ML IV PRN ×2 (00:09→08:54)
[2020-04-13] MEDS ORDERED: DEXTROSE 50%, 50ML SYRINGE IVPush ONE ×5 (01:30→07:00)
[2020-04-13] MEDS ORDERED: DEXTROSE 10%, 1,000ML IV SCH (02:30)
[2020-04-13] MEDS ORDERED: SODIUM BICARBONATE 1 MEQ/ML, 50ML VIAL ONE (02:41)
[2020-04-13] MEDS: PHENYLEPHRINE 50 MG in SODIUM CHLORIDE 0.9% 245 ML IV PRN ×2 (02:41→06:01)
[2020-04-13] MEDS ORDERED: SODIUM BICARB 8.4%, 50ML SYRINGE ONE (02:49)
[2020-04-13] MEDS ORDERED: SODIUM BICARBONATE 1 MEQ/ML, 50ML VIAL IVPush ONE (03:00)
[2020-04-13] MEDS ORDERED: DEXTROSE 10% 1,000 ML IV SCH (03:00)
[2020-04-13] MEDS ORDERED: SODIUM BICARB 8.4%, 50ML SYRINGE IVPush ONE (03:00)
[2020-04-13] MEDS: NOREPINEPHRINE 32 MG in SODIUM CHLORIDE 0.9% 218 ML IV PRN ×3 (03:29→09:47)
[2020-04-13 04:48] LABS: MEAN CORPUSCULAR HEMOGLOBIN 24.8 pg (27.0-34.8); MEAN CORPUSCULAR HGB CONC 30.8 g/dL (32.4-35.8); MEAN CORPUSCULAR VOLUME 80.5 fL (80-100); MEAN PLATELET VOLUME 10.2 fL (7.4-10.4); PLATELET COUNT 185 x10^3/uL (130-400); RED BLOOD COUNT 5.83 x10^6/uL (3.82-5.3); RED CELL DISTRIBUTION WIDTH 23.6 % (9.6-15.2)
[2020-04-13 04:51] LABS: ANION GAP 16 mmol/L (5-15); CALCIUM 6.9 mg/dL (8.5-10.1); CHLORIDE 103 mmol/L (98-107); CREATININE 2.45 mg/dL (0.55-1.02)
[2020-04-13 04:53] LABS: VANCOMYCIN,RANDOM 24.3 mcg/mL
[2020-04-13 05:24] LABS: BASOPHILS # (AUTO) 0.02 x10^3/uL (0-0.1); BASOPHILS % (AUTO) 0 % (0-1); EOSINOPHILS % (AUTO) 0 % (1-7); LYMPHOCYTES % (AUTO) 15 % (22-44); MD SCAN; MONOCYTES # (AUTO) 1.68 x10^3/uL (0.2-0.8); MONOCYTES % (AUTO) 9 % (2-9); NEUTROPHILS # (AUTO) 14.44 x10^3/uL (1.8-6.8); NEUTROPHILS % (AUTO) 76 % (42-75)
[2020-04-13] MEDS: ASPIRIN 81 MG TABLET EC PO SCH (05:51)
[2020-04-13] MEDS: METOPROLOL TARTRATE 25 MG TAB PO SCH (05:52)
[2020-04-13] MEDS: SODIUM BICARBONATE 8.4% 150 MEQ in DEXTROSE 5% 1,000 ML IV SCH (06:42)
[2020-04-13] MEDS: FUROSEMIDE 40 MG/4 ML IV SCH (07:30)
[2020-04-13] MEDS: SILDENAFIL 20 MG TABLET PO SCH (09:00)
[2020-04-13] MEDS ORDERED: FAMOTIDINE 20 MG/2 ML IV SCH (09:00)
[2020-04-13] MEDS: DOXYCYCLINE 100 MG in DEXTROSE 5% 250 ML IV SCH (09:38)
[2020-04-13] MEDS: PANTOPRAZOLE 40 MG IV IVPush SCH (09:38)
[2020-04-13] MEDS ORDERED: MORPHINE SULFATE 4 MG/ML, 1ML IV ONE (11:00)
[2020-04-13] MEDS ORDERED: LORazepam 2 MG/ML, 1ML IVPush PRN (11:00)
[2020-04-13] MEDS ORDERED: ONDANSETRON 2MG/ML, 2ML IVPush PRN (11:00)
[2020-04-13] MEDS ORDERED: LORazepam 2 MG/ML, 1ML IV ONE (11:00)
[2020-04-13] MEDS ORDERED: MORPHINE SULFATE 4 MG/ML, 1ML IVPush PRN (11:00)
== END 2020-04-13 11:44 | disposition expired | DRG 871 ==
LOC: ED 18:17 → EDIP 18:23 → ED 19:17 → CCU 20:14
PROVIDERS: ADMIT Hospitalist; ATTEND Internal Medicine
PROC: 0T9B70Z Drainage of Bladder with Drainage Device, Via Natural or Artificial Opening (ICD-10-PCS; principal; 2020-04-11)
PROC: 5A1945Z Respiratory Ventilation, 24-96 Consecutive Hours (ICD-10-PCS; 2020-04-12)
PROC: 0BH17EZ Insertion of Endotracheal Airway into Trachea, Via Natural or Artificial Opening (ICD-10-PCS; 2020-04-12)
DX: A41.9 Sepsis, unspecified organism (principal); E43 Unspecified severe protein-calorie malnutrition; G92 Toxic encephalopathy; I50.43 Acute on chronic combined systolic (congestive) and diastolic (congestive) heart failure; J96.01 Acute respiratory failure with hypoxia; J96.02 Acute respiratory failure with hypercapnia; R65.21 Severe sepsis with septic shock; J18.9 Pneumonia, unspecified organism; D68.9 Coagulation defect, unspecified; J91.8 Pleural effusion in other conditions classified elsewhere; E16.2 Hypoglycemia, unspecified; E66.01 Morbid (severe) obesity due to excess calories; F15.10 Other stimulant abuse, uncomplicated; I07.1 Rheumatic tricuspid insufficiency; I11.0 Hypertensive heart disease with heart failure; I27.29 Other secondary pulmonary hypertension; I50.82 Biventricular heart failure; I27.81 Cor pulmonale (chronic); Z51.5 Encounter for palliative care; Z82.49 Family history of ischemic heart disease and other diseases of the circulatory system; Z91.19 Patient's noncompliance with other medical treatment and regimen; Z87.891 Personal history of nicotine dependence
CPT/HCPCS: 31500; 36415; 36600; 82805; 96365; 96375; 99291; J3490; J7042; 70450; 71045; 80048; 80053; 80202; 80307; 81001; 82533; 82800; 82803; 82962; 83036; 83605; 83735; 83880; 84100; 84443; 84478; 84484; 85025; 85610; 87040; 87070; 87077; 87081; 87086; 87147; 87186; 87205; 93005; 93306; 93970; 94002; 94003; G0378; J0696; J1650; J1940; J2704; J3010; J3370; J7060; J7070; P9047; C9113; J2060; J2270; J2370; J3475; J7030; J7040; J7050